=== PATIENT | female | born 1960 | race Caucasian/White ===

== ENCOUNTER 2018-09-07 23:34 | Inpatient (IN) | payer OTHER ==
[~2018-09-07] VITALS: Ht 177.8 cm; Wt 109.3 kg
[~2018-09-07 23:34] MED LIST: CYCLOBENZAPRINE10 MG PO; DESYREL50 MG PO; EFFEXOR25 MG PO; FLEXERIL PO; LOPID600 MG PO; MEDROLDOSEPACK PO; PERCOCET 5-3251 EACH PO; PERCOCET 7.5-31 EACH PO; SYNTHROID125 MCG PO; SYNTHROID25 MCG PO; TEGRETOL XR100 MG PO
[2018-09-07 23:35] VITALS: BP 96/32
[2018-09-07] MEDS ORDERED: LYRICA 50 MG50 MG PO (23:40)
[2018-09-07] MEDS ORDERED: [UNRECOGNIZED DRUG - OTHER] PO (23:40)
[2018-09-08] MEDS ORDERED: TEGRETOL200 MG PO (06:26)
[2018-09-08 06:28] LABS: ABSOLUTE NEUTROPHILS 5.1 thou/uL (1.4-8.2); BASOPHILS 0.3 % (0.0-2.0); EOSINOPHILS 1.4 % (0.0-3.0); HEMATOCRIT 38.9 % (37.0-47.0); LYMPHOCYTES 25.6 % (24.0-44.0); MCH 30.9 pg (26.0-34.0); MCHC 33.5 g/dL (28.0-37.0); MCV 92.2 fL (80.0-100.0); MONOCYTES 7.3 % (1.0-8.0); PLATELET COUNT 193 thou/uL (150-400); POLYS 65.4 % (36.0-66.0); RBC 4.22 mil/uL (4.20-5.00); RDW 14.3 % (10.5-14.5); WBC 7.8 thou/uL (4.0-11.0)
[2018-09-08 06:41] LABS: CALCIUM 9.3 mg/dL (8.5-10.1); POTASSIUM 4.9 mmol/L (3.5-5.1)
[2018-09-08 09:37] VITALS: BP 144/95
[2018-09-08 10:32] VITALS: BP 141/60
--- NOTE | 2018-09-08 11:00 | NUR ---
PT LIVES ALONE AND REPORTS SHE FELL DOWN 6 STEPS LAST PANCHO @ 1900..DENIES HITTING HEAD..REPORTS URINARY INCONTINENCE X 2...STATES HER PAIN IS 8/10 TO RT LOWER BACK AND ALSO IN RT LEG...DECREASED USE OF RT LEG RE NEUROPATHY/FALL..REPORTS BURNING SENSATION TO RT LEG RE NEUROPATHY..MEDICATED IN ED AND WAS GIVEN NARCAN THIS ROSLYN @ 0400...WILL HAVE PATIENT ON CONT SAT MONITOR TO WATCH HER SATS...
[2018-09-08] MEDS ORDERED: KLONOPIN1 MG PO (11:02)
[2018-09-08] MEDS ORDERED: AMBIEN 5 MG TABL5 M1 PO (11:03)
[2018-09-08] MEDS ORDERED: TRAZODONE 150150 M1 PO (11:04)
[2018-09-08 11:10] VITALS: BP 140/70
[2018-09-08 15:41] VITALS: BP 164/85
[2018-09-08 16:28] VITALS: BP 136/83
[2018-09-08 19:50] VITALS: BP 137/82
--- NOTE | 2018-09-08 21:14 | NUR ---
EDUCATION GIVEN TO PT REGARDING TELEMETRY INTERFERENCE MONITORING, CONSENT SIGNED BY PT AND ALLOWED FOR QUESTIONS.
[2018-09-09 03:51] VITALS: BP 109/58
--- NOTE | 2018-09-09 05:10 | NUR ---
PT IN BED BUT HAS NOT HAD MUCH RELIEF FROM VOMITING THROUGHOUT SHIFT AND SINCE ADMISSION. PT REMAINS SR ON MONITOR. PT HAS BEEN AFEBRILE. PT ON 2L NC WITH CONT PULSE OX. AM LABS TO BE REVIEWED.
[2018-09-09 05:47] LABS: HEMATOCRIT 37.3 % (37.0-47.0); HEMOGLOBIN 12.6 gm/dL (12.0-15.0); MCH 31.3 pg (26.0-34.0); MCHC 33.9 g/dL (28.0-37.0); MCV 92.4 fL (80.0-100.0); RBC 4.04 mil/uL (4.20-5.00); RDW 13.9 % (10.5-14.5)
[2018-09-09 06:06] LABS: CALCIUM 8.9 mg/dL (8.5-10.1); CREATININE 0.3 mg/dL (0.6-1.0); POTASSIUM 5.7 mmol/L (3.5-5.1)
[2018-09-09 07:42] VITALS: BP 150/80
[2018-09-09 11:15] VITALS: BP 123/64
[2018-09-09 15:14] VITALS: BP 99/53
--- NOTE | 2018-09-09 15:19 | NUR ---
INITIAL ASSESSMENT: Received consult for home health services. SW reviewed chart and spoke with attending physician. Pt was admitted from home due to intractable back pain. Therapy ordered to evaluate pt for discharge needs. SW attempted to meet with pt at bedside. Pt sleeping soundly. Discharge home is anticipated for tomorrow. Awaiting therapy evals. SW is following to assist as needed with discharge planning.
--- NOTE | 2018-09-09 18:01 | NUR ---
SHIFT SUMMARY: PT PROGRESSING. NAUSEA RESOLVED, STARTED TAKING JELLO/LIQUIDS, THEN ADVANCED TO MEAL AND ALL WELL TOLERATED. PO NARCOTIC AND FLEXERIL GIVEN FOR CHRONIC MID LOWER BACK PAIN. PT REQUESTING CLONAZEPAM, UPDATED THAT DR. ACEVEDO IS AWARE AND MED NOT ORDERED AT THIS TIME. PT REQUESTING IV PAIN MEDICATION, THEN REINFORCED THE IMPORTANCE OF TAKING PO MEDS TO CONTINUE THE PLAN TO GO HOME IN AM. REQUESTED JIGNESHIEN, THEN STRESSED THE IMPORTANCE OF HAVING HER PAIN MEDS AT THIS TIME FOR PAIN CONTROL. PT AGREEABLE TO CONTINUE TAKING PO MEDS FOR PAIN CONTROL. PT GETTING OUT OF BED AT LEAST THREE TIMES TODAY WITHOUT ASSISTANCE. RN AND TECH BOTH EXPLAINING IMPORTANCE OF CALL LIGHT USE WHEN USING BEDSIDE COMMODE. ROOM AIR, SAO2>/= TO 92%, SR- 70-80'S. CONTINUING TO PROGRESS.
[2018-09-09 20:53] VITALS: BP 104/61
[2018-09-10 04:00] VITALS: BP 94/64
[2018-09-10 05:27] LABS: HEMATOCRIT 36.4 % (37.0-47.0); HEMOGLOBIN 12.3 gm/dL (12.0-15.0); MCH 30.8 pg (26.0-34.0); MCHC 33.8 g/dL (28.0-37.0); RBC 3.99 mil/uL (4.20-5.00); WBC 3.9 thou/uL (4.0-11.0)
--- NOTE | 2018-09-10 05:27 | NUR ---
PT RESTING IN BED CURRENTLY. BACK ON 2L NC WHILE SLEEPING. REQUIRED DOSES OF PAIN MEDS THROUGHOUT SHIFT. SR ON MONITOR. PT AM LABS TO BE REVIEWED. NO MORE N/V TONIGHT
[2018-09-10 05:46] LABS: CREATININE 0.9 mg/dL (0.6-1.0); POTASSIUM 3.9 mmol/L (3.5-5.1)
--- NOTE | 2018-09-10 07:45 | NUR ---
ASSUMMED CARE OF PATIENT, AWAKEN FROM SLEEP AND REQUESTING PAIN MED. ASSESSMENT COMPLETED.
[2018-09-10 08:00] VITALS: BP 122/69
[2018-09-10 11:31] VITALS: BP 102/51
[2018-09-10] MEDS ORDERED: CYCLOBENZAPRINE5 MG PO (12:25)
[2018-09-10] MEDS ORDERED: HYDROCODON-ACE1 EAC7 PO (12:26)
--- NOTE | 2018-09-10 14:38 | NUR ---
DISCHARGE ORDERS RECEIVED. PATIENT DISCHARGING TO HOME. PATIENT IN NEED OF TRANSPORTATION TO HOME. [facility] TO TRANSPORT PATIENT, CAB RATE. [id number] HOURS SPINNER OPERATOR TIME. UNIT NOTIFIED. SW NOTIFIED.
--- NOTE | 2018-09-10 14:51 | NUR ---
DISCHARGE NOTE: ALYSIA reviewed chart and spoke with nursing and attending physician. Pt is medically stable for discharge home today. SW met with pt at bedside. Introduced role of SW. Pt is alert/orientated x 4. Pt reports she lives in a [facility] apt complex ([facility] There is an elevator inside the complex. Prior to admission, pt was independent with ADLs. No use of DME. Pt has a cpap machine at home. Pt does not need home O2. Pt's O2 sat was 89% with activity and 95% at rest. Pt states she does not have transportation available to get home. Wheelchair van transportation (at cab rate) arranged for [phone] per [facility]. SW confirmed pt's home address: [address] [place] [address] [address] [place] [address]. Nursing aware of transportation time. No additional SW needs identified at this time, but is available to assist should needs arise.
[2018-09-10 14:58] VITALS: BP 102/51
--- NOTE | 2018-09-10 16:10 | NUR ---
PATIENT DISCHARGED TO HOME VIA WHEELCHAIR VAN, DISCHARGE INSTRUCTIONS REVIEWED WITH PATIENT WELL PRESCRIPTIONS AND THE NEED TO FOLLOW THEM DIRECTED. PATIENT VERBALIZED UNDERSTANDING.
== END 2018-09-10 16:30 | disposition home or self-care (01) | DRG 552 ==
LOC: ER 23:34 → 3W 09-08 04:55 → EROBS 09-08 04:55 → 3W 09-08 10:34
PROVIDERS: Emergency Medicine; ADMIT Hospitalist
DX: M62.830 Muscle spasm of back (principal); G47.33 Obstructive sleep apnea (adult) (pediatric); G62.9 Polyneuropathy, unspecified; F32.9 Major depressive disorder, single episode, unspecified; E03.9 Hypothyroidism, unspecified; W10.8XXA Fall (on) (from) other stairs and steps, initial encounter; Y93.89 Activity, other specified; Y92.89 Other specified places as the place of occurrence of the external cause; Y99.8 Other external cause status; Z88.6 Allergy status to analgesic agent; Z88.8 Allergy status to other drugs, medicaments and biological substances; Z98.891 History of uterine scar from previous surgery
CPT/HCPCS: 10879

== ENCOUNTER 2019-02-09 22:00 | Inpatient (IN) | payer OTHER ==
[~2019-02-09] VITALS: Ht 177.8 cm; Wt 111.5 kg
[~2019-02-09 22:00] MED LIST changes: +AMBIEN 5 MG TABL5 M1 PO; +CYCLOBENZAPRINE5 MG PO; +HYDROCODON-ACE1 EAC7 PO; +KLONOPIN1 MG PO; +LYRICA 50 MG50 MG PO; +TEGRETOL200 MG PO; +TRAZODONE 150150 M1 PO; +[UNRECOGNIZED DRUG - OTHER] PO
[2019-02-09 22:02] VITALS: BP 138/74
[2019-02-09 22:53] LABS: CALCIUM 9.2 mg/dL (8.5-10.1); CREATININE 0.8 mg/dL (0.6-1.0); POTASSIUM 4.4 mmol/L (3.5-5.1)
[2019-02-09 22:59] LABS: ALBUMIN 3.7 g/dL (3.4-5.0); TOTAL BILIRUBIN 0.1 mg/dL (<0.1-1.0); TOTAL PROTEIN 7.1 g/dL (6.4-8.2)
[2019-02-09 23:54] LABS: ABSOLUTE NEUTROPHILS 2.3 thou/uL (1.4-8.2); BASOPHILS 0.6 % (0.0-2.0); EOSINOPHILS 1.5 % (0.0-3.0); HEMATOCRIT 36.7 % (37.0-47.0); HEMOGLOBIN 12.3 gm/dL (12.0-15.0); LYMPHOCYTES 39.5 % (24.0-44.0); MCHC 33.4 g/dL (28.0-37.0); MCV 95.7 fL (80.0-100.0); MONOCYTES 10.5 % (1.0-8.0); PLATELET COUNT 170 thou/uL (150-400); POLYS 47.9 % (36.0-66.0); RBC 3.83 mil/uL (4.20-5.00); RDW 13.7 % (10.5-14.5); WBC 4.9 thou/uL (4.0-11.0)
[2019-02-10] VITALS (7 sets, daily range): BP systolic 110–155; BP diastolic 44–100
--- NOTE | 2019-02-10 | NUR ---
CARMELO FROM LAB CALLED TO NOTIFY THIS RN THAT PATIENT IS O+ AND HAS SPECIAL ANTIBODIES (QUINTERO A) - IF TRANSFUSION NECESSARY, WILL NEED TO SEND OUT FOR UNITS TO TRANSFUSE. CARMELO ALSO CALLED TO SAY THERE IS A DELAY IN OBTAINING READ OUT OF CBC AND DIFFERENTIAL (HGB: 12.2, HCT: 36.9M RBC: 3.84) - [facility]
--- NOTE | 2019-02-10 00:39 | NUR ---
PATIENT CONTINUOSLY CALLING OUT FOR PAIN MEDICATION AND NAUSEA MEDICATIONS. PHYSICIAN AWARE. SEE EMAR FOR MEDICATION ADMINISTRATION
--- NOTE | 2019-02-10 05:27 | NUR ---
Patient arrived to around 0345. She was oriented to her room, admission documentation and assessments completed, and orders initiated. Patient is anxious and impulsive. She was directed to call if she needs assistance getting up. Fall precautions in place. Nursing will continue to monitor.
[2019-02-10 10:34] LABS: AMP/METHAMP Negative (Negative); BARBITURATES Negative (Negative); BENZODIAZEPINES POSITIVE (Negative); COCAINE Negative (Negative); METHADONE Negative (Negative); OPIATES POSITIVE (Negative); PCP Negative (Negative)
--- NOTE | 2019-02-10 13:17 | NUR ---
INITIAL ASSESSMENT: Received consult. ALYSIA reviewed chart and spoke with nursing and attending physician. Pt was admitted from home due abdominal pain/nausea/vomiting. GI consulted. Pt to have EGD on . ALYSIA met with pt at bedside. Introduced role of ALYSIA. Pt is alert/orientated and states she lives alone in an apt at [facility]. Pt lives on the 4th floor and has elevator access to the 4th floor. Pt reports she has a cane and walker at home. Pt also has a cpap. Pt has used HH in the past, but is unsure of name of provider. Pt does not have a PCP and would like a [facility] provider list at time of discharge. Pt denies having any additional needs. ALYSIA is following to assist as needed with discharge planning.
[2019-02-10 15:28] LABS: HEMATOCRIT 40.4 % (37.0-47.0); HEMOGLOBIN 13.4 gm/dL (12.0-15.0); MCH 32.1 pg (26.0-34.0); MCHC 33.1 g/dL (28.0-37.0); RBC 4.16 mil/uL (4.20-5.00); RDW 14.1 % (10.5-14.5); WBC 8.3 thou/uL (4.0-11.0)
[2019-02-10 15:34] LABS: CALCIUM 8.7 mg/dL (8.5-10.1); CREATININE 0.7 mg/dL (0.6-1.0); POTASSIUM 4.8 mmol/L (3.5-5.1)
--- NOTE | 2019-02-10 18:51 | NUR ---
VASCULAR ACCESS CONSULTED FOR MIDLINE, VESSELS 2CM DEEP. DISCUSSED ML WITH PT,BENEFITS AND RISKS,VERBALIZED UNDERSTANDING. DAO BRACHIAL WIDELY PATENT WITH USG. 4FR ML TRIMMED TO 12CM INSERTED TO 0CM WITH BRISK BR. ML RELEASED FOR IMMEDIATE USE PER PROTOCOL TO IZA TILLMAN
--- NOTE | 2019-02-10 19:35 | NUR ---
PT VOICING ABDOMINAL PAIN AND ANXIETY THROUGH OUT THE DAY. PRN DILUADID AND ATIVAN GIVEN THROUGH OUT THE DAY. UPDATED DR. MEJIA ON PATIENTS CONTINOUAL REUQEST FOR NARCOTICS. SEEN BY GI. PLAN FOR EGD ON SATURDAY. OKAY TO START ON CLEAR LIQUID DIET AND ADVANCED IF TOLERATED. PT IMPULSIVE AND FORGETS TO USE CALL LIGHT. BED ALARM ON. FALL PRECAUTIONS IN PLACE.
--- NOTE | 2019-02-10 22:29 | NUR ---
PT RESTING IN BED UPON ARRIVAL TO SHIFT. PT REPORTED NAUSEA AND PRN PROVIDED PT HAS HAD EMESIS X GREEN IN COLOR. PT TAKING SIPS OF CLEARS. STEADY GAIT WITH ASSISTANCE OF IV POLE, ALARM ON PT IMPULSIVE GETS OUT OF BED WITHOUT TAKING SCDS OFF OR TAKING IV POLE. R MIDLINE AND IVF INTACT.
--- NOTE | 2019-02-10 22:48 | NUR ---
EMESIS CHANGED FROM GREEN TO BROWN, COMMODITIES CLERK WILL BE NOTIFIED.
--- NOTE | 2019-02-10 23:03 | NUR ---
NOTIFIED DIE ENGRAVER OF COLOR CHANGE OF EMESIS, AM LAB ORDER OBTAINED.
--- NOTE | 2019-02-11 02:15 | NUR ---
AFTER PRN PAIN MEDICATION PT HAS BEEN SLEEPING AND NO FURTHER EMESIS.
[2019-02-11 04:08] VITALS: BP 147/74
--- NOTE | 2019-02-11 05:36 | NUR ---
PT TOLD THE AIDE SHE DID NOT WANT PAIN MEDS, SHE TOLD THE NURSE SHE DID. SHE TOLD THE NURSE SHE WAS NOT FEELING THE PAIN MEDICINE AND THINKS HER IV DOES NOT WORK. TOLD NURSE SHE WAS PUSHING IT TO SLOW IT WAS NOT RELIEVING HER PAIN. NURSE EDUCATED PT ON MIDLINE VS PERIPHERAL AND RATIONALES BEHIND NOT PUSHING PAIN MEDS FAST R/T RR AND BP.
[2019-02-11 08:32] VITALS: BP 137/88
[2019-02-11 15:21] VITALS: BP 128/64
--- NOTE | 2019-02-11 18:47 | NUR ---
Assumed patient care at 0715. Patient's vital signs have been stable. She spent most of this shift yelling out at staff, coming up to the nurse's station with several demands. Patient was claiming to be "vomiting all over the place!" When this nurse would check, all that was noted was approximately 10-20mL's of clear liquid with spit in it. Patient wanted pain medication, nausea medication before it was due. This medication was given per IV even though client claimed that her midline was no longer working. Patient called on her call light several times, yelled out from her room and came to the nurse's desk several times. She became belligerent and was harassing staff. At one point, she walked by several patient's rooms stating "you better leave!", and, "this is a bad place!" Patient later began to yell down the hallway that her midline was infiltrated and that her arm was going to fall off because of her IV. IV was removed per patient's request.
== END 2019-02-11 18:00 | disposition left against medical advice (07) | DRG 379 ==
LOC: ER 22:00 → 3W 02-10 02:40 → EROBS 02-10 02:40 → 3W 02-10 03:14
PROVIDERS: Emergency Medicine; Hospitalist; Nurse Practitioner; ADMIT Hospitalist
DX: K92.0 Hematemesis (principal); R10.9 Unspecified abdominal pain; M32.9 Systemic lupus erythematosus, unspecified; G47.33 Obstructive sleep apnea (adult) (pediatric); M19.90 Unspecified osteoarthritis, unspecified site; G62.9 Polyneuropathy, unspecified; F32.9 Major depressive disorder, single episode, unspecified; E03.9 Hypothyroidism, unspecified; F41.9 Anxiety disorder, unspecified; M54.9 Dorsalgia, unspecified; G89.29 Other chronic pain; M51.26 Other intervertebral disc displacement, lumbar region; Z79.891 Long term (current) use of opiate analgesic; Z90.49 Acquired absence of other specified parts of digestive tract; Z90.710 Acquired absence of both cervix and uterus; Z90.89 Acquired absence of other organs; Z87.01 Personal history of pneumonia (recurrent); Z90.722 Acquired absence of ovaries, bilateral; Z79.899 Other long term (current) drug therapy; Z88.5 Allergy status to narcotic agent; Z88.8 Allergy status to other drugs, medicaments and biological substances; Z68.35 Body mass index [BMI] 35.0-35.9, adult
CPT/HCPCS: 10879; 27000

== ENCOUNTER 2019-08-07 17:16 | Emergency (ER) | payer OTHER ==
[~2019-08-07] VITALS: Ht 177.8 cm; Wt 110.2 kg
--- NOTE | ~2019-08-07 | EMS ---
[facility] [address] [place] [address] EMS Patient Care Report Name: BOOKER CHENEY Room #: REG CINDY Mueller#: [id number] Admission: 08/07/19 Attend Phys: Discharge: Date of : 58 Report #: [id number] THIS REPORT FOR: //name// Report Transmitted: 08/07/2019 20:10 EMS Care Summary [facility] MED-ACT Incident [id number] @ 08/07/2019 16:19 Incident [address] [place] [address] Patient BOOKER CHENEY Female, 59 Years 1960 Patient Address [address] [place] [address] Patient History Asthma,Lupus,Depression, Patient Allergies No known allergies, Patient Medications Unknown, Chief Complaint Abdominal pain Disposition Transported No Lights/Colony Dispatch Reason Sick Person Transported To [facility] Narrative 1142 responded to a residence to find a 59 yr old female sitting in her living room. Pt states that she has been having abdominal pain for the past day and [facility] [address] [place] [address] EMS Patient Care Report Name: BOOKER CHENEY [id number] Admission: 08/07/19 Attend Phys: Discharge: Date of : 58 Report #: [id number] was having nausea and vomiting with diarrhea. Pt states that she would like to be evaluated at the ER. Pt denies any chest pain, denies any SOA, denies any change in medication, and denies any trauma. Pt was able to ambulate to the cot. Pt was seat belted in. Pt was then monitored and transported. Upon arrival to the ER, Pt care was transferred to the nursing staff. No change in Pt status were noted. Initial Vitals @16:49P: 79,R: 16,BP: 96/70,Pain: 4/10,GCS: 15,SpO2: 93,Revised Trauma: 12,[place] Suspected: false @16:50P: 82,R: 18,BP: 114/69,Pain: 8/10,GCS: 15,Revised Trauma: 12,[place] Suspected: false @17:08P: 79,R: 18,BP: 116/69,Pain: 8/10,GCS: 15,SpO2: 96,Revised Trauma: 12,[place] Suspected: false @16:50P: 81,R: 18,Pain: 8/10,GCS: 15,SpO2: 94,[place] Suspected: false Assessments @16:51MENTAL:Person Oriented,Time Oriented,Place Oriented,Event Oriented,SKIN:HEENT:Head/Face: No Abnormalities,Neck/Airway: No Abnormalities,LUNG SOUNDS:Left Upper: Tenderness,Right Upper: Tenderness,ABDOMEN:Left Upper: Tenderness,Right Upper: Tenderness,PELVIS//GI:EXTREMITIES:Left Arm: No Abnormalities,Right Arm: No Abnormalities,Left Leg: No Abnormalities,Right Leg: No Abnormalities,PULSE:NEURO:No Abnormalities, Impression Vomiting Procedures @16:54Ondansetron - 4 Milligrams (mg) - Intravenous (IV)Response: Unchanged@16:5012-Lead ECG Timeline 16:17,Call Received 16:17,Psap Call 16:19,Dispatched 16:20,En Route 16:27,On Scene 16:29,At Patient 16:49,BP: 96/70 M,PULSE: 79,RR: 16 R,SPO2: 93 Ox,ETCO2: ,BG: ,PAIN: 4,GCS: 15, 16:50,12-Lead ECG, 16:50,BP: / M,PULSE: 81,RR: 18 R,SPO2: 94 Ox,ETCO2: ,BG: ,PAIN: 8,GCS: 15, 16:50,BP: 114/69 M,PULSE: 82,RR: 18 R,SPO2: Ox,ETCO2: ,BG: ,PAIN: 8,GCS: 15, 16:52,Depart Scene 16:54,Ondansetron - 4 Milligrams (mg) - Intravenous (IV),Response: Unchanged 17:08,BP: 116/69 M,PULSE: 79,RR: 18 R,SPO2: 96 Ox,ETCO2: ,BG: ,PAIN: 8,GCS: 15, [address] [address] EMS Patient Care Report Name: BOOKER CHENEY Room #: REG CINDY Mueller#: [id number] Admission: 08/07/19 Attend Phys: Discharge: Date of : 58 Report #: [id number] 17:11,At Destination 17:13,Transfer Patient 17:45,Call Closed Disclaimer v1.1 Copyright 2020 [employer] This EMS Care Summary contains data elements from the applicable legal record (which may be displayed differently). It is designed to provide pertinent information for the following purposes: continuity of care, clinical quality, and state data reporting. The complete legal record is available to ED staff and administrators of the receiving hospital in [employer]'s Patient Tracker. All data is provided "as is."
[2019-08-07] MEDS ORDERED: BRINTELLIX20 MG PO (17:23)
[2019-08-07 17:51] LABS: HEMATOCRIT 37.4 % (37.0-47.0); HEMOGLOBIN 12.8 gm/dL (12.0-15.0); MCH 32.6 pg (26.0-34.0); MCHC 34.2 g/dL (28.0-37.0); MCV 95.4 fL (80.0-100.0); PLATELET COUNT 169 thou/uL (150-400); RBC 3.93 mil/uL (4.20-5.00); RDW 13.8 % (10.5-14.5); WBC 4.1 thou/uL (4.0-11.0)
[2019-08-07 18:03] LABS: ANION GAP 3 mmol/L (7-16); BUN 19 mg/dL (7-18); CALCIUM 8.7 mg/dL (8.5-10.1); CHLORIDE 106 mmol/L (98-107); CO2 32 mmol/L (21-32); CREATININE 0.7 mg/dL (0.6-1.0); GLUCOSE 76 mg/dL (74-106); POTASSIUM 4.3 mmol/L (3.5-5.1); SODIUM 141 mmol/L (136-145)
[2019-08-07 18:07] LABS: APTT 25.1 Seconds (24.5-32.8); PROTIME 9.9 Seconds (9.3-11.4)
[2019-08-07 18:15] LABS: ALBUMIN 3.3 g/dL (3.4-5.0); LIPASE 83 U/L (73-393); SGOT 11 U/L (15-37); SGPT 17 U/L (30-65); TOTAL BILIRUBIN 0.2 mg/dL (0.2-1.0); TROPONIN-I <0.06 ng/mL (<0.06)
[2019-08-07 19:10] LABS: ABSOLUTE NEUTROPHILS 1.8 thou/uL (1.4-8.2); PLATELET ESTIMATE NORMAL
[2019-08-07 19:56] LABS: URINE BILIRUBIN NEGATIVE (Negative); URINE BLOOD NEGATIVE (Negative); URINE CLARITY CLEAR; URINE COLOR YELLOW; URINE GLUCOSE-RANDOM* NEGATIVE (Negative); URINE KETONES NEGATIVE (Negative); URINE LEUKOCYTES-REFLEX NEGATIVE (Negative); URINE NITRITE-REFLEX NEGATIVE (Negative); URINE PROTEIN (DIPSTICK) NEGATIVE (Negative); URINE UROBILINOGEN 0.2 E.U./dl (0.2-1.0)
[2019-08-07 20:04] LABS: AMP/METHAMP Negative (Negative); BARBITURATES Negative (Negative); BENZODIAZEPINES Negative (Negative); COCAINE Negative (Negative); METHADONE Negative (Negative); OPIATES POSITIVE (Negative); PCP Negative (Negative)
[2019-08-07] MEDS ORDERED: ZOFRAN ODT4 MG PO (21:35)
[2019-08-07] MEDS ORDERED: OMEPRAZOLE 20 M20 M1 PO (21:35)
[2019-08-07 22:26] VITALS: BP 168/85
--- NOTE | 2019-08-08 11:51 | EKG ---
[facility] [place] [address] [place] [address] ELECTROCARDIOGRAM REPORT Name: SHRAVANBOOKER Room #: [facility]#: [id number] Admission: 08/07/19 Attend Phys: Discharge: 08/07/19 Date of : 58 Report #: [id number] THIS REPORT FOR: cc: CONNER - Nabila family physician/PCP CONNER - Nabila family physician/PCP Wilian Bravo MD ~ THIS REPORT FOR: //name// [facility] ED Test Date: 2019-08-07 Test Time: 17:32:01 Pat Name: BOOKER CHENEY Department: Room: Gender: F [employer] Attacher: : 1960 Requested By: Raphael Patel Order Number: [id number] MD: Wilian Bravo Measurements Intervals [place] Rate: 76 P: 62 IN: 166 QRS: 50 QRSD: 97 T: 53 QT: 392 QTc: 441 Interpretive Statements Sinus rhythm Compared to ECG 12/10/2011 21:56:15 No significant changes Electronically Signed On 08-08-2019 11:50:27 CDT by Wilian Bravo [email or web address] <ELECTRONICALLY SIGNED> By: Wilian Bravo MD 08/08/19 1150 [id number] Wilian Bravo MD /SONJA
== END 2019-08-07 22:05 | disposition home or self-care (01) ==
LOC: ER 17:16
PROVIDERS: Emergency Medicine
DX: R10.84 Generalized abdominal pain (principal); R11.10 Vomiting, unspecified; R19.7 Diarrhea, unspecified; E03.9 Hypothyroidism, unspecified; F17.210 Nicotine dependence, cigarettes, uncomplicated; Z90.49 Acquired absence of other specified parts of digestive tract; Z79.899 Other long term (current) drug therapy; Z88.8 Allergy status to other drugs, medicaments and biological substances